=== PATIENT | female | born 1985 | race Caucasian/White ===

== ENCOUNTER 2022-09-19 00:51 | Day surgery (SDC) | payer BC, SELFPAY ==
[2022-09-18 12:36] VITALS: BMI 36.1
--- NOTE | 2022-09-18 12:41 | PC.NURSE ---
Report to the Outpatient Waiting Room, entrance under the green pavilion located off [facility], at time 1130 on date 09/19/22. Planned Procedure Time: 1330. Time changes happen often and if your time is changed the preop area will call you the afternoon before. - You and your visitor will be asked to self-screen and do not enter if you have any COVID symptoms. - Only one visitor is requested with a max of two and NO children visitors are allowed at this time. - The patient visitor may be requested to leave or wait in car when not with patient due to distancing restrictions. - A mask is REQUIRED within the hospital. Patients may have clear liquids (water, carbonated beverages, clear teas, apple juice) until 3 hours prior to surgery with a maximum of 20 ounces. - No food from midnight until time of surgery Take the following medications with a SIP of water the morning of surgery: TYLENOL IF NEEDED Medications to discontinue per physician: VITAMINS Date to take last dose: NO MORE UNTIL AFTER SURGERY Please no make-up, nail mohawk, hairspray, perfume, deodorant, or body powder the day of surgery. No jewelry (including any body piercings) or valuables the day of surgery, leave them at home. Please take a shower or bath the night before, or the morning of, surgery with an antibacterial soap. Wear comfortable, loose fitting clothing. - Jewelry must be removed prior to entering the operating room. Rings and piercings that are not removed may be cut off. - The hospital will not accept responsibility for valuables. - Please leave all valuables, including medications, at home the day of surgery. If you are going home after surgery, a licensed commercial relief driver must drive you home. - NO public transportation without another adult if you receive anesthesia. - We recommend that an adult stay with you for 24 hours following discharge. - We also recommend that you do not drive, make important decision, drink alcoholic beverages, or take any drugs that were not prescribed by your health care provider for at least 24 hours after your discharge time. Follow any additional instructions given to you from your surgeon. If you or anyone in your household have experienced Covid symptoms in the past week, please notify your surgeon or the nurse liaison at the phone number below for possible testing. Telephone instructions given to PT - JOSE OROZCO and asked if any additional questions and then verbalized understanding. Patient advised to call surgeon office or pre surgery nurse liaison [phone] if any additional questions.
--- NOTE | 2022-09-18 14:16 | P.PNAN_ITS ---
Anes - Initial Pre Proc Eval Procedure: Operation Date: 09/19/22 13:30 Proposed Procedures p Suction Dilation and Curretage - Micah Baird MD Date/Time: 09/18/22 14:16 Surgeon: Micah Baird MD Pre Op Diagnosis: Missed AB Patient Data Age: 37 Gender: F Height: 1.55 m Weight: 86.64 kg Allergies Allergy/AdvReac Type Severity Reaction Status Date / Time minocycline Allergy Unknown Hives Verified 09/19/22 11:36 Home Medications Medication Instructions Recorded Confirmed Type acetaminophen 500 mg tablet 100 mg PO QID PRN Pain 09/18/22 09/19/22 History prenat.vits,ken,oag-qeba-mvoln 1 tablet PO DAILY 09/18/22 09/19/22 History hydrocodone 5 mg-acetaminophen 325 1 tablet PO Q4H PRN pain #14 tabs 09/19/22 Rx mg tablet Patient hx anesthesia problems: none Family hx anesthesia problems: none Results Review: All pre-operative results and documents have been reviewed as part of the pre- operative evaluation. [facility] Past Medical History Medical History Anxiety Depression HTN (hypertension) Obesity Social History Social History Years smoked: 15 Smoking status: Former smoker Tobacco type: cigarettes Smoking end date: 08/16/22 Alcohol intake: current Alcohol use details: SOCIAL WHEN NOT Substance use: never Substance use type: does not use Living arrangements: alone Spiritual care concerns: No Anes - Eval Final PreProcedure Day of Procedure 09/18/22 14:16 Patient weight: obese Heart: regular rate and rhythm Lungs: clear to auscultation and normal air movement Airway: Mallampati scale class II Neurological: alert and oriented Last oral intake: >/= 8 hours ASA classification: III Emergent: no Anesthetic plan: proceed Anesthesia type and monitoring: general GIVS and LMA Results Review: All pre-operative results and documents have been reviewed as part of the pre- operative evaluation. Informed Consent: The patient's anesthetic plan and its attendant risks and benefits were discussed with the patient/family/POA. Questions were solicited and answers provided to the satisfaction of the patient/family/POA.
--- NOTE | 2022-09-19 07:41 | PM.IMHP ---
H&P: HPI History of Present Illness Date/Time: 09/19/22 07:41 Chief Complaint: Bleeding in 1st trimester Narrative: This is a 37 year 1 para 0 with abnormal findings on ultrasound in 1st trimester consistent with incomplete A/B. She was offered watchful waiting versus suction D& C. Risks and benefits reviewed including not exclusive of aspiration pneumonia bleeding transfusion infection perforation injury to bowel bladder ureters or other internal organs with need for laparotomy. She had all questions answered and asked to proceed PMFSH Past Medical History Medical History Anxiety Depression HTN (hypertension) Obesity Social History Social History Years smoked: 15 Smoking status: Former smoker Tobacco type: cigarettes Smoking end date: 08/16/22 Alcohol intake: current Alcohol use details: SOCIAL WHEN NOT Substance use: never Substance use type: does not use Living arrangements: alone Spiritual care concerns: No Meds Home Medications and Allergies Home Medications Medication Instructions Recorded Confirmed Type acetaminophen 500 mg tablet 100 mg PO QID PRN Pain 09/18/22 09/18/22 History prenat.vits,ken,dir-jimb-uuwkj 1 tablet PO DAILY 09/18/22 09/18/22 History Allergies Allergy/AdvReac Type Severity Reaction Status Date / Time minocycline Allergy Hives Verified 09/18/22 12:45 Exam Const: General: cooperative, healthy appearing and comfortable Nutritional Appearance: average body habitus Orientation/consciousness: oriented to person, oriented to place and oriented to time HENMT: Head: normal to inspection Resp: Effort & Inspection: normal respiratory effort Cardio: Rate: regular rate Rhythm: regular rhythm Heart sounds: S1 normal heart sound present and S2 normal heart sound present GI: Inspection: normal to inspection : External Female Exam: normal external appearance Speculum Exam - Vagina: normal appearance of the vagina Speculum Exam - Cervix: normal appearance of the cervix Bimanual exam- vagina & uterus: enlarged Bimanual Exam- Adnexa, other: normal adnexae Assessment and Plan Assessment and plan (1) Missed with demise before 20 completed weeks of gestation: Code(s): O02.1 - Missed Status: Acute Plan Suction dilatation curettage
--- NOTE | 2022-09-19 07:44 | WPDHPUPDATE1 ---
History and Physical Update Update Date/Time: 09/19/22 07:44 History and Physical has been reviewed, including an updated exam of the patient. There are NO changes in the patient's condition. Risks, benefits, and alternatives have been discussed and questions answered. Patient agrees to proceed with procedure.
[2022-09-19 11:26] VITALS: BP 148/89; PULSE 93; RESP 20; TEMP 36.4; O2SAT 100
[2022-09-19] MEDS: ACETAMINOPHEN 500 MG TABLET 1000 MG PO (11:34)
[2022-09-19] MEDS: LACTATED RINGERS 1,000 ML 30 ML IV CONT (11:45)
[2022-09-19 11:59] LABS: Hemoglobin 12.2 g/dL (12.0-15.0)
--- NOTE | 2022-09-19 14:15 | W.PM.PROC2 ---
Procedure Note - Detailed Date of Procedure 09/19/22 Pre-op Diagnosis Missed AB Post-op Diagnosis Same Procedure Performed Suction dilatation curettage Surgeon Micah Baird MD Anesthesia MAC and Local Indications this is a 37-year-old female in her 1st trimester with a missed A/B Findings uterus sounded to 10cm. Tissue was consistent with products conception. Description of Procedure Patient was prepped draped in the normal sterile fashion placed in the dorsal lithotomy position. Under excellent IV sedation weighted speculum placed in posterior fornix vagina. Anterior lip of the cervix grasped with a single-tooth tenaculum. 2.5cc of% xylocaine anesthesia placed at 2, 4, 8, 10:00 a.m. of the cervix. Uterus sounded to 10cm. Serial dilatation with fragmented dilators performed followed passes the 10. Suction curette passing 3 times until a good grating sound was heard a moderate amount of tissue was removed blood loss was estimated at50cc. The instruments removed and the patient was awakened. She went to recovery in satisfactory condition. There were no immediate complications noted Estimated Blood Loss 50 Drains No Packing No Pathology Yes Complications No immediate complications Condition Stable Disposition PACU
[2022-09-19 14:21] VITALS: BP 129/75; PULSE 89; RESP 16; O2SAT 99
[2022-09-19 14:50] VITALS: BP 125/78; PULSE 77; RESP 16; O2SAT 100
[2022-09-19] MEDS: oxyCODONE HCL (*CRX) 5 MG TAB IR PO (14:55)
[2022-09-19 15:05] VITALS: BP 127/77; PULSE 83; RESP 18
== END 2022-09-19 15:16 | disposition home or self-care (01) ==
PROVIDERS: PCP Emergency Medicine; Visit Provider Obstetrics & Gynecology
PROC: (CPT 59820; principal; 2022-09-19 13:30)
DX: O02.1 Missed abortion (principal); Z87.891 Personal history of nicotine dependence; Z3A.00 Weeks of gestation of pregnancy not specified
CPT/HCPCS: 59820; 36415; 85014; 85018; 85461; 86850; 86900; 86901; 88305; A9270; J2250; J2704; J3010; J7120